=== PATIENT | female | born 1940 | race Caucasian/White ===

== ENCOUNTER 2020-03-07 14:29 | Emergency (ER) | payer MEDICARE, OTHER ==
--- NOTE | 2020-03-07 14:57 | EDM.PDOC ---
ED HPI GENERAL MEDICAL PROBLEM - General Chief Complaint: Neuro Symptoms/Deficits Stated Complaint: READING AMBULANCE Time Seen by Provider: 03/07/20 14:32 Source of Information: Reports: Patient, EMS History Limitations: Reports: Language Barrier (She has mild dysarthria and is difficult to understand.) - History of Present Illness INITIAL COMMENTS - FREE TEXT/NARRATIVE: 80-year-old female presents to the ED per [facility]. Ambulance approximately 1355 hrs. today when they appreciated their mother not being able to speak to them while sitting as a passenger in a vehicle. They were traveling back from [place] this morning where she was perfectly normal. Paramedics appreciated complete left-sided paralysis and dysarthric speech. Patient denies headache. Speech is difficult to understand and she speaks quite quietly. She has not seen a doctor for many years and therefore is on no medications. Heart rate at the bedside was irregular regular and it was unclear whether there was ectopic beats or atrial fibrillation. ECG reveals that she is indeed in atrial fibrillation of unknown antiquity. We have no way therefore of obtaining an accurate weight on her she says 160 pounds but she appears heavier than this. Is high functioning in terms that she lives alone and performs all of her day-to-day activities without any aids. She cooks for herself etc. Family feels they would pursue thrombolytic therapy would be her wish as well. Therefore we will pursue a ability to obtain accurate weight since TPA is weight-based. T scan performed upon arrival in the ED as she was a stroke alert reveals no intracranial bleeding or mass-effect. There is appropriate age- appropriate degenerative changes particularly in both basal ganglia from demyelination changes. Onset: Today, Sudden Onset Date: 03/07/20 Onset Time: 13:50 Duration: Hour(s): (Approximately 1 hour and 40 minutes from onset), Getting Worse Location: Reports: Upper Extremity, Left (Pre-paresis), Lower Extremity, Left, Other (Ignoring the left side of her body.) Quality: Reports: Other Severity: Severe (Acute CVA.) Improves with: Reports: None Worsens with: Reports: None Context: Reports: Other (Cute onset of left-sided weakness and speech problems appreciated by family members at approximately 1350 hrs. today. Mom standard time). Denies: Activity, Exercise, Lifting, Sick Contact, Trauma Associated Symptoms: Reports: Weakness (Complete paresis left arm and left leg with dysarthric speech.). 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 [No Known Home Meds] 03/07/20 [History] Past Medical History - Past Surgical History GI Surgical History: Reports: Other (See Below) (She has a upper superior umbilical midline incision. Unclear what the surgery was done for. Suspect cholecystectomy but I did cannot prove this and the patient could not remember) Social & Family History - Tobacco Use Smoking Status *Q: Never Smoker - Caffeine Use Caffeine Use: Reports: Coffee - Recreational Drug Use Recreational Drug Use: No - Living Situation & Occupation Living situation: Reports: , Alone Occupation: Retired ED ROS GENERAL - Review of Systems Review Of Systems: Unable To Obtain Reason Not Obtained: Tried to answer questions but speech is hardly discernible due to Constitutional: Denies: Fever, Chills ED EXAM, NEURO - Physical Exam Exam: See Below Exam Limited By: Physical Impairment (Has severe dysarthria from stroke making it very difficult to understand spoken language. She has trouble articulating the words due to dysfunction of the tongue and likely the hypopharynx.) General Appearance: Alert, No Apparent Distress, Other (Patient is ignoring the left side of her body. Vital signs show temperature of 37.1 with a heart rate at 87 but monitor shows atrial fibrillation. Respiratory is 14 with sats of 93% on room air. BP 180/113.) Eye Exam: Bilateral Eye: Normal Inspection (To have mild ptosis of the left eyelid.), PERRL Throat/Mouth: Normal Oropharynx, Other (Uvula pulls to the right side. Tongue had normal range of motion.) Head Exam: Atraumatic, Normocephalic, Other (No signs of trauma to the head or face.) Neck: Normal Inspection, Other (Motion of cervical spine not tested.). No: Carotid Bruit, Lymphadenopathy (L), Lymphadenopathy (R), Thyromegaly Respiratory/Chest: No Respiratory Distress, Lungs Clear, Normal Breath Sounds, Decreased Breath Sounds Cardiovascular: No Edema, No Gallop, Irregularly Irregular (Initially it appeared that she was suffering ectopic beats however the monitor reveals that she is in atrial fibrillation of unknown antiquity..). No: Normal Peripheral Pulses (Sounds were diminished to the lower 25% of the lung jauregui bilaterally. No adventitious sounds appreciated), Regular Rate, Rhythm GI/Abdominal: Normal Bowel Sounds, Soft, Non-Tender, No Organomegaly, No Abnormal Bruit, No Mass, Pelvis Stable, Other (He has a midline supraumbilical surgical wound. She could not tell me what was done.) Neurological: Alert, Abnormal Finger to Nose (Unable to perform), Babinski (Upgoing bilaterally.), Straight Leg Raise (L), Other (Patient cannot perform puffing up the cheeks or tongue to cheek procedures. She has a dense left-sided hemiparesis with no ability to move left arm or left leg at all.). 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.) Psychiatric: Other (Unable to determine.) Skin Exam: Warm, Dry, Intact, Normal Color, No Rash EKG INTERPRETATION EKG Date: 03/07/20 Time: 14:46 Rhythm: A-Fib (With rate of 75 to 125/min) Rate (Beats/Min): 96 Wright: LAD-Left Wright Deviation (-32 degrees) P-Wave: Absent QRS: Other (Waves V1 V2 and near Q wave V3 suggesting old anteroseptal myocardial infarction nonspecific intraventricular conduction delay) ST-T: Other (T wave flattening aVL aVF specific) QT: Normal EKG Interpretation Comments: Abnormal ECG Course - Vital Signs Last Recorded V/S: Last Vital Signs Temp 37.1 C 03/07/20 14:41 Pulse 87 03/07/20 14:41 Resp 14 03/07/20 14:41 BP 179/113 H 03/07/20 14:41 Pulse Ox 93 L 03/07/20 14:41 - Orders/Labs/Meds Orders: Active Orders 24 hr Category Date Time Status Blood Glucose Check, Bedside [] ONETIME Care 03/07/20 15:06 Active EKG 12 Lead [EKG Documentation Completion] [] STAT Care 03/07/20 16:52 Active Insert Lorenzo Catheter [Insert Urinary Catheter] [OM.PC] Care 03/07/20 15:15 Ordered Stat Urinary Catheter Assessment [] ASDIRECTED Care 03/07/20 15:28 Active Labs: Laboratory Tests 03/07/20 03/07/20 03/07/20 Range/Units 14:39 14:41 14:41 WBC 5.49 (3.98-10.04) K/mm3 RBC 4.62 (3.98-5.22) M/mm3 Hgb 13.1 (11.2-15.7) gm/dl Hct 41.3 (34.1-44.9) % MCV 89.4 (79.4-94.8) fl MCH 28.4 (25.6-32.2) pg MCHC 31.7 L (32.2-35.5) g/dl RDW Std Deviation 49.6 H (36.4-46.3) fL Plt Count 225 (182-369) K/mm3 MPV 10.2 (9.4-12.3) fl Neut % (Auto) 63.6 (34.0-71.1) % Lymph % (Auto) 23.9 (19.3-51.7) % Radford % (Auto) 8.6 (4.7-12.5) % Eos % (Auto) 3.1 (0.7-5.8) Baso % (Auto) 0.4 (0.1-1.2) % Neut # (Auto) 3.50 (1.56-6.13) K/mm3 Lymph # (Auto) 1.31 (1.18-3.74) K/mm3 Radford # (Auto) 0.47 H (0.24-0.36) K/mm3 Eos # (Auto) 0.17 (0.04-0.36) K/mm3 Baso # (Auto) 0.02 (0.01-0.08) K/mm3 ESR (0-20) mm/hr PT (9.7-12.0) SECONDS INR APTT (22-31) SECONDS Sodium 139 (136-145) mEq/L Potassium 4.3 (3.5-5.1) mEq/L Chloride 101 (98-107) mEq/L Carbon Dioxide 28 (21-32) mEq/L Anion Gap 14.3 (5-15) BUN 16 (7-18) mg/dL Creatinine 0.9 (0.55-1.02) mg/dL Est Cr Clr Drug Dosing TNP Estimated GFR (MDRD) > 60 (>60) mL/min BUN/Creatinine Ratio 17.8 (14-18) Glucose 136 H (83-115) mg/dL POC Glucose 129 H (83-110) mg/dL Calcium 9.5 (8.5-10.1) mg/dL Magnesium 1.9 (1.8-2.4) mg/dl Total Bilirubin 0.4 (0.2-1.0) mg/dL AST 28 (15-37) U/L ALT 33 (14-59) U/L Alkaline Phosphatase 88 (46-116) U/L CK-MB (CK-2) 1.9 (0-3.6) ng/ml Troponin I < 0.017 (0.00-0.056) ng/mL C-Reactive Protein 1.0 (<1.0) mg/dL NT-Pro-B Natriuret Pep (0-450) pg/mL Total Protein 7.5 (6.4-8.2) g/dl Albumin 3.7 (3.4-5.0) g/dl Globulin 3.8 gm/dL Albumin/Globulin Ratio 1.0 (1-2) Urine Color (Yellow) Urine Appearance (Clear) Urine pH (5.0-8.0) Ur Specific Cornland (1.005-1.030) Urine Protein (Negative) Urine Glucose (UA) (Negative) Urine Ketones (Negative) Urine Occult Blood (Negative) Urine Nitrite (Negative) Urine Bilirubin (Negative) Urine Urobilinogen (0.2-1.0) Ur Leukocyte Esterase (Negative) Urine RBC (0-5) /hpf Urine WBC (0-5) /hpf Ur Squamous Epith Cells (0-5) /hpf Urine Bacteria (FEW) /hpf Urine Mucus (FEW) /hpf SARS Virus RNA (PCR) (NEGATIVE) 03/07/20 03/07/20 03/07/20 Range/Units 14:41 14:41 14:41 WBC (3.98-10.04) K/mm3 RBC (3.98-5.22) M/mm3 Hgb (11.2-15.7) gm/dl Hct (34.1-44.9) % MCV (79.4-94.8) fl MCH (25.6-32.2) pg MCHC (32.2-35.5) g/dl RDW Std Deviation (36.4-46.3) fL Plt Count (182-369) K/mm3 MPV (9.4-12.3) fl Neut % (Auto) (34.0-71.1) % Lymph % (Auto) (19.3-51.7) % Radford % (Auto) (4.7-12.5) % Eos % (Auto) (0.7-5.8) Baso % (Auto) (0.1-1.2) % Neut # (Auto) (1.56-6.13) K/mm3 Lymph # (Auto) (1.18-3.74) K/mm3 Radford # (Auto) (0.24-0.36) K/mm3 Eos # (Auto) (0.04-0.36) K/mm3 Baso # (Auto) (0.01-0.08) K/mm3 ESR 23 H (0-20) mm/hr PT 10.4 (9.7-12.0) SECONDS INR 0.95 APTT 27 (22-31) SECONDS Sodium (136-145) mEq/L Potassium (3.5-5.1) mEq/L Chloride (98-107) mEq/L Carbon Dioxide (21-32) mEq/L Anion Gap (5-15) BUN (7-18) mg/dL Creatinine (0.55-1.02) mg/dL Est Cr Clr Drug Dosing Estimated GFR (MDRD) (>60) mL/min BUN/Creatinine Ratio (14-18) Glucose (83-115) mg/dL POC Glucose (83-110) mg/dL Calcium (8.5-10.1) mg/dL Magnesium (1.8-2.4) mg/dl Total Bilirubin (0.2-1.0) mg/dL AST (15-37) U/L ALT (14-59) U/L Alkaline Phosphatase (46-116) U/L CK-MB (CK-2) (0-3.6) ng/ml Troponin I (0.00-0.056) ng/mL C-Reactive Protein (<1.0) mg/dL NT-Pro-B Natriuret Pep 1285 H (0-450) pg/mL Total Protein (6.4-8.2) g/dl Albumin (3.4-5.0) g/dl Globulin gm/dL Albumin/Globulin Ratio (1-2) Urine Color (Yellow) Urine Appearance (Clear) Urine pH (5.0-8.0) Ur Specific Corn[place] (1.005-1.030) Urine Protein (Negative) Urine Glucose (UA) (Negative) Urine Ketones (Negative) Urine Occult Blood (Negative) Urine Nitrite (Negative) Urine Bilirubin (Negative) Urine Urobilinogen (0.2-1.0) Ur Leukocyte Esterase (Negative) Urine RBC (0-5) /hpf Urine WBC (0-5) /hpf Ur Squamous Epith Cells (0-5) /hpf Urine Bacteria (FEW) /hpf Urine Mucus (FEW) /hpf SARS Virus RNA (PCR) (NEGATIVE) 03/07/20 03/07/20 Range/Units 15:15 15:30 WBC (3.98-10.04) K/mm3 RBC (3.98-5.22) M/mm3 Hgb (11.2-15.7) gm/dl Hct (34.1-44.9) % MCV (79.4-94.8) fl MCH (25.6-32.2) pg MCHC (32.2-35.5) g/dl RDW Std Deviation (36.4-46.3) fL Plt Count (182-369) K/mm3 MPV (9.4-12.3) fl Neut % (Auto) (34.0-71.1) % Lymph % (Auto) (19.3-51.7) % Radford % (Auto) (4.7-12.5) % Eos % (Auto) (0.7-5.8) Baso % (Auto) (0.1-1.2) % Neut # (Auto) (1.56-6.13) K/mm3 Lymph # (Auto) (1.18-3.74) K/mm3 Radford # (Auto) (0.24-0.36) K/mm3 Eos # (Auto) (0.04-0.36) K/mm3 Baso # (Auto) (0.01-0.08) K/mm3 ESR (0-20) mm/hr PT (9.7-12.0) SECONDS INR APTT (22-31) SECONDS Sodium (136-145) mEq/L Potassium (3.5-5.1) mEq/L Chloride (98-107) mEq/L Carbon Dioxide (21-32) mEq/L Anion Gap (5-15) BUN (7-18) mg/dL Creatinine (0.55-1.02) mg/dL Est Cr Clr Drug Dosing Estimated GFR (MDRD) (>60) mL/min BUN/Creatinine Ratio (14-18) Glucose (83-115) mg/dL POC Glucose (83-110) mg/dL Calcium (8.5-10.1) mg/dL Magnesium (1.8-2.4) mg/dl Total Bilirubin (0.2-1.0) mg/dL AST (15-37) U/L ALT (14-59) U/L Alkaline Phosphatase (46-116) U/L CK-MB (CK-2) (0-3.6) ng/ml Troponin I (0.00-0.056) ng/mL C-Reactive Protein (<1.0) mg/dL NT-Pro-B Natriuret Pep (0-450) pg/mL Total Protein (6.4-8.2) g/dl Albumin (3.4-5.0) g/dl Globulin gm/dL Albumin/Globulin Ratio (1-2) Urine Color Light yellow (Yellow) Urine Appearance Clear (Clear) Urine pH 7.0 (5.0-8.0) Ur Specific Cornland 1.020 (1.005-1.030) Urine Protein Negative (Negative) Urine Glucose (UA) Negative (Negative) Urine Ketones Negative (Negative) Urine Occult Blood 2+ H (Negative) Urine Nitrite Positive H (Negative) Urine Bilirubin Negative (Negative) Urine Urobilinogen 0.2 (0.2-1.0) Ur Leukocyte Esterase 1+ H (Negative) Urine RBC 20-30 H (0-5) /hpf Urine WBC 10-20 H (0-5) /hpf Ur Squamous Epith Cells 0-5 (0-5) /hpf Urine Bacteria Many H (FEW) /hpf Urine Mucus Not seen (FEW) /hpf SARS Virus RNA (PCR) Negative (NEGATIVE) Meds: Medications Discontinued Medications Generic Name Dose Route Start Last Admin Trade Name Leticia PRN Reason Stop Dose Admin Alteplase, Recombinant Confirm 03/07/20 15:01 03/07/20 15:31 Activase Administered 03/07/20 15:02 100 mg Dose Administration 100 mg .ROUTE .STK-MED ONE Alteplase, Recombinant 8 mg 03/07/20 15:08 Activase IVPUSH 03/07/20 15:09 .BOLUS ONE Labetalol HCl 100 mg/ Sodium 100 mls @ 30 mls/hr 03/07/20 15:15 03/07/20 15:32 Chloride IV 0.5 mg/min TITRATE GOOD 30 mls/hr Administration Protocol 0.5 MG/MIN Labetalol HCl 20 mg 03/07/20 15:04 03/07/20 15:31 Normodyne IVPUSH 03/07/20 15:05 20 mg ONETIME ONE Administration Protocol Labetalol HCl Confirm 03/07/20 15:04 03/07/20 15:37 Normodyne Administered 03/07/20 15:05 Not Given Dose 100 mg .ROUTE .STK-MED ONE - Radiology Interpretation Free Text/Narrative:: 80-year-old female presents to the ED with family members who witnessed sudden onset of speech difficulties and hardly discernible speech at about 1350 hrs. about the standard time today. She was a passenger in a vehicle with her son and daughter and had left [place] towards their home [place] of [facility]. Family recognized that she had developed a complete paresis on the left arm and leg. They therefore called the [facility] ambulance whom attended [place] em [place] on [place]. They too identified a complete left-sided hemiparesis. Patient has apparently not seen a doctor for 10 years or more. She is on no medications. However she lives alone and functions at high rate in terms of cooking for herself and doing all her duties of daily living. She presents to the ED hypertensive at 180/113 and she was found to be in atrial fibrillation of unknown antique witty with rate of 75 to 125/min. CT was done immediately as part of stroke protocol. CT shows old lacunar infarcts in the basal ganglia but no intracranial bleeding or mass-effect. Diffuse degenerative change appreciated. Atherosclerotic calcification seen within the vertebral vessels and within the carotid siphon. Discussed options with family members and due to her high level of function decision made to treat her with TPA. Her blood pressure was elevated and therefore she required labetalol 20 mg IV bolus then a drip started at 0.5 mg/h. She was given TPA per protocol. We did weigh her on a weight bed as we had no idea how much she weighed. Patient said she weighed 160 and when in fact she weighed 193 pounds or 88.6 kg which is the weight we used for weight-based TPA therapy. Chest x-ray done reveals marked cardiomegaly with mild vascular infiltrate right lower lobe. The left cardiac border extends out to the costal margin. Pressure at the time of discharge was 172 /73. Paramedics will titrate labetalol as needed to keep blood pressure between 160 and 170 systolic and 90-100 diastolic. The test was performed that she will be admitted to the hospital. Labs are pending - Re-Assessments/Exams Free Text/Narrative Re-Assessment/Exam: 03/07/20 16:05 Labs reveal a normal white count at 5.49. The auto differential shows 63.6% neutrophils. Hemoglobin is 13.1 with hematocrit of 41.3. Platelet count is 225,000. PT is 10.4 with an INR of 0.95. PTT is 27. Sodium 139 with a potassium of 4.3. Chloride is 101 with a bicarb of 28. Anion gap is 14.3. BUN is 16 with a creatinine of 0.9. GFR remains greater than 60. Glucose is 136 bedside glucose was 129. Calcium is 9.5 with a magnesium of 1.9. Liver function normal. CK-MB fraction 1.9 troponin I less than 0.017. C-reactive protein 1.0. BNP is elevated at 1285. Total protein is 7.5 with an albumin fraction of 3.7. COVID-19 screen not yet available. Urinalysis not yet available 03/07/20 17:13 Analysis obtained by catheterization reveals 2+ occult blood positive nitrates 1+ leukocyte esterase 20-30 RBCs per high-power field and 10- 20 white blood cells per high-power field. Many bacteria appreciated. Urine culture has been ordered. 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 - Cerebral infarction due to embolism of right middle cerebral artery Atrial fibrillation Qualifiers: Atrial fibrillation type: unspecified chronic Qualified Code(s): I48.20 - Chronic atrial fibrillation, unspecified; I48.2 - Chronic atrial fibrillation - Discharge Information *PRESCRIPTION DRUG MONITORING PROGRAM REVIEWED*: Not Applicable *COPY OF PRESCRIPTION DRUG MONITORING REPORT IN PATIENT TRISTIAN: Not Applicable Referrals: PCP,None [Primary Care Provider] - Forms: ED Department Discharge Additional Instructions: Patient transferred to [facility] in [place] due to acute left-sided hemiparesis and dysarthric speech due to CVA. Thrombolytics were given in the ED. She is to attend the ED at [facility] in [place] with Dr. Borden accepting physician. Allergy services has been made aware of the patient as well. Sepsis Event Note (ED) - Evaluation Sepsis Screening Result: No Definite Risk - Focused Exam Vital Signs: Vital Signs Temp Pulse Resp BP Pulse Ox 03/07/20 14:41 37.1 C 87 14 179/113 H 93 L - My Orders Last 24 Hours: My Active Orders 03/07/20 15:06 Blood Glucose Check, Bedside [] ONETIME 03/07/20 15:15 Insert Lorenzo Catheter [Insert Urinary Catheter] [OM.PC] Stat 03/07/20 15:28 Urinary Catheter Assessment [] ASDIRECTED 03/07/20 16:52 EKG 12 Lead [EKG Documentation Completion] [] STAT - Assessment/Plan Last 24 Hours: My Active Orders 03/07/20 15:06 Blood Glucose Check, Bedside [] ONETIME 03/07/20 15:15 Insert Lorenzo Catheter [Insert Urinary Catheter] [OM.PC] Stat 03/07/20 15:28 Urinary Catheter Assessment [] ASDIRECTED 03/07/20 16:52 EKG 12 Lead [EKG Documentation Completion] [RC] STAT
--- NOTE | 2020-03-07 14:59 | CT ---
Head CT Technique: Multiple axial sections through the brain were obtained. Intravenous contrast was not utilized. Comparison: No prior intracranial imaging is available. Findings: Ventricles along with basal cisterns and sulci over the convexities are mildly prominent. Diminished density is noted within the periventricular and subcortical white matter which is compatible with small vessel ischemic demyelination change. Old lacunar infarcts are noted within the basal ganglia. Atherosclerotic calcification is seen within the vertebral vessels and within the carotid siphon. No evidence of intracranial hemorrhage. No midline shift or mass-effect is appreciated. Bone window settings were reviewed. Visualized paranasal sinuses and mastoid sinuses appear clear. No acute calvarial abnormality is appreciated. Impression: 1. Senescent change as noted above. 2. No acute intracranial abnormality is appreciated. Note: Consider MRI to further evaluate the patient's stroke symptoms. Diagnostic code #3 This report was dictated in MDT
[2020-03-07] MEDS ORDERED: Labetalol 100 MG/20 ML MDV IVPUSH ONE (15:04)
[2020-03-07] MEDS ORDERED: Labetalol 100 MG/20 ML MDV ONE (15:04)
[2020-03-07] MEDS ORDERED: Labetalol 100 MG in Sodium Chloride 0.9% 80 ML IV SCH (15:15)
--- NOTE | 2020-03-07 15:24 | CR ---
Chest: Portable view of the chest was obtained. Comparison: No prior chest imaging is available. Heart is enlarged. Tortuous thoracic aorta is seen. Lungs are clear with no acute parenchymal change. Minimal atelectasis within the left midlung is seen. Bony structures are grossly intact. Impression: 1. Cardiomegaly. Nothing acute is otherwise seen. Diagnostic code #2 This report was dictated in MDT
== END 2020-03-07 15:50 ==
LOC: JD.ED 14:29
DX: I63.411 Cerebral infarction due to embolism of right middle cerebral artery (principal); I48.20 Chronic atrial fibrillation, unspecified; I10 Essential (primary) hypertension
CPT/HCPCS: 36415; 51702; 70450; 71045; 80053; 81001; 82553; 82962; 83735; 83880; 84484; 85025; 85610; 85652; 85730; 86140; 87086; 87088; 87186; 93005; 96365; 99285; J2997; J3490; U0002

== ENCOUNTER 2022-07-07 13:55 | Emergency (ER) | payer MEDICARE, MEDICAID ==
[2022-07-07] MEDS ORDERED: Sodium Chloride 0.9% 10 ML Syringe FLUSH PRN ×2 (14:21→14:42)
[2022-07-07] MEDS ORDERED: Ondansetron 4 MG/2 ML SDV IVPUSH ONE (14:35)
[2022-07-07] MEDS ORDERED: Iopamidol 612 MG/ML 100 ML Bottle IVPUSH ONE (14:42)
[2022-07-07] MEDS ORDERED: Sodium Chloride 0.9% 1,000 ML IV SCH (14:45)
[2022-07-07 15:13] LABS: ESTIMATED GFR 89 mL/min (>60)
[2022-07-07] MEDS ORDERED: Potassium Chloride 10 MEQ in Premix Bag 1 BAG IV ONE (17:00)
[2022-07-07] MEDS ORDERED: Magnesium Sulfate/Water 2 GM in Premix Bag 1 BAG IV ONE (19:27)
[2022-07-07] MEDS ORDERED: Metoclopramide 10 MG/2 ML SDV IVPUSH STA (20:43)
[2022-07-07] MEDS ORDERED: Piperacillin/Tazobactam 4.5 GM in Sodium Chloride 0.9% 100 ML IV SCH (21:45)
[2022-07-08] MEDS ORDERED: Sodium Chloride 0.9% 1,000 ML IV SCH (06:00)
[2022-07-08] MEDS ORDERED: Piperacillin/Tazobactam 4.5 GM in Sodium Chloride 0.9% 100 ML IV SCH (14:00)
== END 2022-07-08 18:35 ==
LOC: SUPCPDRO 13:55 → JD.ED 13:55
DX: U07.1 COVID-19 (principal); K81.0 Acute cholecystitis; Z79.899 Other long term (current) drug therapy; Z79.01 Long term (current) use of anticoagulants; Z79.84 Long term (current) use of oral hypoglycemic drugs
CPT/HCPCS: 36415; 74176; 76705; 80053; 81003; 82977; 83690; 83735; 85025; 86140; 96361; 96365; 96366; 96367; 96375; 99285; J2405; J2543; J2765; J3475; J3480; J3490; J7030; U0002